=== PATIENT | male | born 1955 | race Caucasian/White ===

== ENCOUNTER 2024-05-06 14:52 | Inpatient (IN) | payer OTHER ==
[~2024-05-06] VITALS: Ht 175.3 cm; Wt 107.0 kg
[2024-05-06 15:07] VITALS: BP_SYST 114; PULSE 41; RESP 21; TEMP 97.6; O2SAT 96
[2024-05-06] MEDS: NACL 0.9% 1,000 ML IV ONE (15:32)
[2024-05-06] MEDS: GLUCAGON,HUMAN RECOMBINANT 1 MG VIAL IVP ONE (15:33)
[2024-05-06] MEDS: ONDANSETRON HCL 4 MG/2 ML VIAL IVP ONE (15:34)
[2024-05-06 15:48] LABS: BASOPHILS # (AUTO) 0.1 K/uL (0.0-0.2); BASOPHILS % (AUTO) 0.6 % (0.0-2.0); EOSINOPHILS # (AUTO) 0.4 K/uL (0.0-0.4); EOSINOPHILS % (AUTO) 3.2 % (0.0-4.0); HEMATOCRIT 51.3 % (36-54); HEMOGLOBIN 17.1 g/dL (14.0-18.0); LYMPHOCYTES # (AUTO) 3.4 K/uL (1.0-5.5); LYMPHOCYTES % (AUTO) 29.4 % (20.5-51.5); MEAN CORPUSCULAR HEMOGLOBIN 28 pg (27-31); MEAN CORPUSCULAR HGB CONC 33 % (32-36); MEAN CORPUSCULAR VOLUME 83 fL (79.0-98.0); MONOCYTES # (AUTO) 1.1 K/uL (0.0-1.0); MONOCYTES % (AUTO) 9.7 % (1.7-9.3); NEUTROPHILS # (AUTO) 6.5 K/uL (1.8-7.7); NEUTROPHILS % (AUTO) 57.1 % (40.0-70.0); PLATELET COUNT (AUTO) 200 K/uL (130-430); RED BLOOD CELL COUNT(AUTO) 6.21 MIL/uL (4.2-6.2); RED CELL DISTRIBUTION WIDTH 16.4 % (9.0-15.0); WHITE BLOOD COUNT (AUTO) 11.5 K/uL (4.8-10.8)
[2024-05-06 16:50] LABS: ANION GAP 8 (5-15); CARBON DIOXIDE 28 mmol/L (23-29); CHLORIDE 103 mmol/L (98-107); CREATININE 1.16 mg/dL (0.55-1.30); GFR AFRICAN AMERICAN 80 mL/min (>90); GFR NON AFRICAN-AMERICAN 66 mL/min (>90); GLUCOSE 136 mg/dL (74-106); POTASSIUM 3.4 mmol/L (3.5-5.1); SODIUM SERUM 139 mmol/L (136-145); UREA NITROGEN, BLOOD 17 mg/dL (8-21)
[2024-05-06] MEDS: MAGNESIUM SULFATE 50 ML IV ONE (17:24)
[2024-05-06] MEDS: POTASSIUM CHLORIDE 20 MEQ/PKT PACKET PO ONE (17:24)
[2024-05-06] MEDS ORDERED: HYDROcodone/ACETAMIN 5-325 MG TAB (NORCO/ VICODIN) PO PRN (18:45)
[2024-05-06] MEDS ORDERED: ALBUTEROL SULFATE 0.083% 2.5 MG/3 ML VIAL.NEB INH PRN (18:45)
[2024-05-06] MEDS ORDERED: HYDROcodone/ACETAMIN 10-325 MG TAB PO PRN (18:45)
[2024-05-06] MEDS ORDERED: ONDANSETRON HCL 4 MG/2 ML VIAL IVP PRN (18:45)
[2024-05-06] MEDS ORDERED: ASPI-1155 PO (18:54)
[2024-05-06] MEDS ORDERED: ALBMDI INH (18:54)
[2024-05-06] MEDS ORDERED: GLIP10TA21 PO (18:54)
[2024-05-06] MEDS ORDERED: OMEG-133 PO (18:54)
[2024-05-06] MEDS ORDERED: NEU300 PO (18:54)
[2024-05-06] MEDS ORDERED: ATOR40TA68 PO (18:54)
[2024-05-06] MEDS ORDERED: VITD2000 PO (18:54)
[2024-05-06] MEDS ORDERED: METO25TA6 PO (18:54)
[2024-05-06] MEDS ORDERED: LISI20TA30 PO (18:54)
[2024-05-06] MEDS ORDERED: LISI1TAB55 PO (18:54)
[2024-05-06] MEDS ORDERED: EMPA10TA PO (18:54)
[2024-05-06] MEDS ORDERED: METF-381 PO (18:54)
[2024-05-06] MEDS ORDERED: BUDE6HFA INH (18:54)
[2024-05-06 20:31] LABS: BILIRUBIN,URINE NEGATIVE (NEGATIVE); BLOOD, URINE NEGATIVE (NEGATIVE); CLARITY/URINE CLEAR (CLEAR); COLOR,URINE YELLOW (YELLOW); GLUCOSE,URINE 3+ (NEGATIVE); KETONES,URINE NEGATIVE (NEGATIVE); LEUKOCYTE ESTERASE ,URINE NEGATIVE (NEGATIVE); NITRITE, URINE NEGATIVE (NEGATIVE); PH,URINE 5.5 (5.0-8.0); PROTEIN URINE NEGATIVE (NEGATIVE); UROBILINOGEN,URINE 0.2 (0.2-1.0)
[2024-05-06 20:46] VITALS: BP_SYST 187; PULSE 40; RESP 20; TEMP 97.4
[2024-05-06 23:43] VITALS: BP_SYST 122; PULSE 51; RESP 20; TEMP 97.5; O2SAT 92
[2024-05-06] MEDS: ACETAMINOPHEN 325 MG TABLET PO PRN (23:43)
[2024-05-07] VITALS (12 sets, daily range): BP systolic 122–223; PULSE 40–75; RESP 14–24; TEMP 97.5–98.6; O2SAT 90–96
[2024-05-07 06:07] LABS: BASOPHILS # (AUTO) 0.1 K/uL (0.0-0.2); BASOPHILS % (AUTO) 0.5 % (0.0-2.0); EOSINOPHILS # (AUTO) 0.4 K/uL (0.0-0.4); EOSINOPHILS % (AUTO) 3.4 % (0.0-4.0); HEMATOCRIT 48.7 % (36-54); LYMPHOCYTES # (AUTO) 3.9 K/uL (1.0-5.5); LYMPHOCYTES % (AUTO) 35.1 % (20.5-51.5); MEAN CORPUSCULAR HEMOGLOBIN 28 pg (27-31); MEAN CORPUSCULAR HGB CONC 33 % (32-36); MEAN CORPUSCULAR VOLUME 84 fL (79.0-98.0); NEUTROPHILS # (AUTO) 5.7 K/uL (1.8-7.7); PLATELET COUNT (AUTO) 210 K/uL (130-430); RED BLOOD CELL COUNT(AUTO) 5.82 MIL/uL (4.2-6.2); RED CELL DISTRIBUTION WIDTH 16.2 % (9.0-15.0)
[2024-05-07 06:23] LABS: CALCIUM 8.8 mg/dL (8.4-11.0); CREATININE 1.21 mg/dL (0.55-1.30); PHOSPHORUS 3.7 mg/dL (2.7-4.5); POTASSIUM 3.9 mmol/L (3.5-5.1); TOTAL BILIRUBIN 0.4 mg/dL (0.0-1.0); TOTAL PROTEIN, SERUM 7.9 g/dL (6.4-8.3)
[2024-05-07] MEDS ORDERED: DEXTROSE 50% JECT 50 ML DISP.SYRIN IVP PRN (11:30)
[2024-05-07] MEDS ORDERED: GLUCOSE (DEXTROSE) ORAL GEL -Adults PO PRN (11:30)
[2024-05-07] MEDS: ATORVASTATIN 20 MG TABLET PO ONE (11:53)
[2024-05-07] MEDS: ASPIRIN 81 MG TAB.CHEW PO ONE (11:53)
[2024-05-07] MEDS: lisinopriL 20 MG TABLET PO ONE ×2 (11:54→19:04)
[2024-05-07] MEDS ORDERED: cloNIDine HCL 0.1 MG TABLET PO PRN (19:00)
[2024-05-07] MEDS: cloNIDine HCL 0.1 MG TABLET PO ONE (19:05)
[2024-05-07] MEDS: GABAPENTIN 300 MG CAPSULE PO SCH (21:18)
[2024-05-07] MEDS: INSULIN REGULAR, HUMAN 100 UNITS/ML, 3 ML VIAL (humuLIN R) SUBCUT PRN (21:22)
[2024-05-07] MEDS ORDERED: hydrALAZINE HCL 20 MG/ML VIAL IVP PRN (22:30)
[2024-05-07] MEDS: amLODIPine BESYLATE 10 MG TABLET PO ONE (22:35)
[2024-05-07] MEDS: amLODIPine BESYLATE 10 MG TABLET PO SCH (22:58)
[2024-05-08] VITALS (20 sets, daily range): BP systolic 88–167; PULSE 37–84; RESP 6–22; TEMP 97.6–98.8; O2SAT 87–98
[2024-05-08 05:35] LABS: INR 1.1 (0.80-1.20)
[2024-05-08] MEDS: lisinopriL 20 MG TABLET PO SCH (09:00)
[2024-05-08] MEDS: ATORVASTATIN 20 MG TABLET PO SCH (09:00)
[2024-05-08] MEDS: ASPIRIN 81 MG TAB.CHEW PO SCH (09:00)
[2024-05-08] MEDS ORDERED: ceFAZolin SODIUM 1 GM VIAL ONE (09:15)
[2024-05-08] MEDS: MIDAZOLAM HCL 5 MG/5 ML VIAL ONE (09:44)
[2024-05-08] MEDS: fentaNYL CITRATE/PF 100 MCG/2 ML AMP ONE (09:44)
[2024-05-08] MEDS ORDERED: iohexoL 240 mgI/mL, 50 ML INFUS..BTL IV ONE (09:58)
[2024-05-08] MEDS ORDERED: MORPHINE 4 MG INJ. 4 MG/ML VIAL IVP PRN ×2 (11:30)
[2024-05-08] MEDS ORDERED: METOCLOPRAMIDE HCL 10 MG/2 ML VIAL IVP PRN (11:30)
[2024-05-08] MEDS ORDERED: ONDANSETRON HCL 4 MG/2 ML VIAL IVP PRN (11:40)
[2024-05-08 13:01] LABS: BASOPHILS # (AUTO) 0.1 K/uL (0.0-0.2); BASOPHILS % (AUTO) 0.6 % (0.0-2.0); EOSINOPHILS # (AUTO) 0.2 K/uL (0.0-0.4); EOSINOPHILS % (AUTO) 1.9 % (0.0-4.0); HEMATOCRIT 48.2 % (36-54); HEMOGLOBIN 15.8 g/dL (14.0-18.0); LYMPHOCYTES # (AUTO) 2.4 K/uL (1.0-5.5); LYMPHOCYTES % (AUTO) 25.8 % (20.5-51.5); MEAN CORPUSCULAR HEMOGLOBIN 27 pg (27-31); MEAN CORPUSCULAR HGB CONC 33 % (32-36); MEAN CORPUSCULAR VOLUME 84 fL (79.0-98.0); MONOCYTES # (AUTO) 0.7 K/uL (0.0-1.0); MONOCYTES % (AUTO) 7.8 % (1.7-9.3); NEUTROPHILS # (AUTO) 5.9 K/uL (1.8-7.7); NEUTROPHILS % (AUTO) 63.9 % (40.0-70.0); PLATELET COUNT (AUTO) 163 K/uL (130-430); RED BLOOD CELL COUNT(AUTO) 5.77 MIL/uL (4.2-6.2); WHITE BLOOD COUNT (AUTO) 9.2 K/uL (4.8-10.8)
[2024-05-08 13:14] LABS: ALBUMIN 2.8 g/dL (3.4-4.8); CALCIUM 8.4 mg/dL (8.4-11.0); CREATININE 1.16 mg/dL (0.55-1.30); POTASSIUM 3.8 mmol/L (3.5-5.1); TOTAL BILIRUBIN 0.4 mg/dL (0.0-1.0); TOTAL PROTEIN, SERUM 7.3 g/dL (6.4-8.3)
[2024-05-08] MEDS: MORPHINE 4 MG INJ. 4 MG/ML VIAL IVP PRN (13:59)
[2024-05-08] MEDS ORDERED: LISI40TA13 PO (17:50)
[2024-05-08] MEDS ORDERED: HYDR25TA86 PO (17:51)
== END 2024-05-08 19:00 | disposition home or self-care (01) | DRG 229 ==
LOC: SED 14:52 → STU 18:45 → SIC 05-07 13:23
PROVIDERS: ADMIT Family Medicine; ATTEND Family Medicine
PROC: 02HK3NZ Insertion of Intracardiac Pacemaker into Right Ventricle, Percutaneous Approach (ICD-10-PCS; principal; 2024-05-08 09:38)
DX: I44.2 Atrioventricular block, complete (principal); I11.9 Hypertensive heart disease without heart failure; E11.9 Type 2 diabetes mellitus without complications; E78.5 Hyperlipidemia, unspecified; E87.6 Hypokalemia; E66.9 Obesity, unspecified; Z68.34 Body mass index [BMI] 34.0-34.9, adult; Z79.899 Other long term (current) drug therapy
CPT/HCPCS: 36415; 71045; 76000; 80048; 80053; 81001; 81003; 82948; 83037; 83735; 83880; 84100; 84439; 84443; 84484; 85025; 85610; 85730; 93005; 93306; 94070; 94760; 96365; 96375; 97112-GP; 97116-GP; 99285; C1769; C1786; C1894; G0378; J0690; J1610; J1644; J1815; J2250; J2270; J2405; J2704; J3010; J3475; J3490; J7120; L1830; Q9966